=== PATIENT | female | born 1970 | race Caucasian/White ===

== ENCOUNTER 2017-01-24 09:31 | Inpatient (IN) | payer OTHER ==
[~2017-01-24] VITALS: Ht 157.5 cm; Wt 59.1 kg
[~2017-01-24 09:31] MED LIST: ATARAX,VISTARIL50 MG PO; CARBIDOPA/LEVOD1 TA1 PO; HYDROXYZINE PAM50 MG PO; LYRICA150 MG PO; NICOTINE T21 MG/24 H T; NYSTATIN 500,0001 EA PO; ROBAXIN750 MG PO; SINEMET 25-100M1 TAB PO; THERA1 TAB PO; VITAMIN B-11 TAB PO; ZOFRAN 4 MG ED2 TAB PO
[2017-01-24 10:20] VITALS: BP 134/78
[2017-01-24] MEDS ORDERED: ONE DAILY ESSE1 EACH PO (10:26)
[2017-01-24] MEDS ORDERED: ESCITALOPRAM OX20 MG PO (10:26)
[2017-01-24 11:29] LABS: BILIRUBIN NEGATIVE (NEGATIVE); BLOOD NEGATIVE (NEGATIVE); CLARITY CLEAR (CLEAR); COLOR YELLOW (YELLOW); GLUCOSE NEGATIVE (NEGATIVE); KETONE NEGATIVE (NEGATIVE); LEUKO ESTERASE NEGATIVE (NEGATIVE); NITRITE NEGATIVE (NEGATIVE); PH 5.5 (5.0-9.0); PROTEIN NEGATIVE (NEGATIVE); SPECIFIC GRAVITY >= 1.030 (1.005-1.030); UROBILINOGEN 0.2 E.U./dl (0.2-1.0)
[2017-01-24 11:35] LABS: BASO % 0.3 % (0.0-1.0); EOS % 0.3 % (1.0-4.0); HEMATOCRIT 38.4 % (37.0-47.0); HEMOGLOBIN 13.1 g/dl (12.0-16.0); LYMPH # 2.1 10*3/uL (1.3-4.4); MEAN CELL VOLUME 84.6 fl (81.0-99.0); MEAN CORPUSCULAR HGB 28.9 pg (27.0-31.0); MEAN CORPUSCULAR HGB CONC 34.1 g/dl (33.0-37.0); MEAN PLATELET VOLUME 10.1 fl (9.6-12.3); MONO # 0.7 10*3/uL (0.1-1.0); MONO % 6.7 % (3.0-9.0); NEUT # 7.3 10*3/uL (2.3-7.9); NEUT % 71.4 % (47.0-73.0); PLATELET COUNT AUTOMATED 208 10*3/uL (130-400); RED BLOOD COUNT 4.54 10*6/uL (4.10-5.10); RED CELL DISTRI WIDTH 12.9 % (0-14.5); WHITE BLOOD COUNT 10.2 10*3/uL (4.8-10.8)
[2017-01-24 11:35] LABS: BACTERIA TRACE; MUCOUS 1+; RBC 0-2 rbc/hpf (0-2)
[2017-01-24 11:36] LABS: URINE REFLEX COMMENT NO (NO)
[2017-01-24 11:37] LABS: URINE AMPHETAMINES < 1000 (1000ng/ml); URINE BARBITURATES < 200 (200ng/ml); URINE COCAINE > 300 (300ng/ml)
[2017-01-24 11:46] LABS: PROTHROMBIN TIME 10.4 SECONDS (9.0-12.4)
[2017-01-24 11:54] LABS: ALBUMIN 3.5 gm/dl (3.1-4.5); ALKALINE PHOSPHATASE 95 U/L (45-117); BILIRUBIN, TOTAL 0.3 mg/dl (0.2-1.0); BUN 13 mg/dl (7-24); CARBON DIOXIDE 29 mmol/L (21-32); CHLORIDE 104 mmol/L (98-107); EST GLOM FILT AFRICAN AMERICAN > 60 ml/min; GLUCOSE 100 mg/dL (65-99); POTASSIUM 4.4 mmol/L (3.5-5.1); SGOT/AST 26 IU/L (3-35); SGPT/ALT 56 U/L (12-78); SODIUM 142 mmol/L (136-145); TOTAL PROTEIN 7.4 gm/dL (6.4-8.2)
[2017-01-24 12:00] VITALS: BP 119/63
[2017-01-24 16:00] VITALS: BP 98/54
[2017-01-24 20:15] VITALS: BP 99/66
[2017-01-25] VITALS: BP 124/82
[2017-01-25 08:00] VITALS: BP 118/76
[2017-01-25 12:00] VITALS: BP 122/65
[2017-01-25 16:00] VITALS: BP 145/85
[2017-01-25 20:00] VITALS: BP 144/83
[2017-01-26] VITALS: BP 157/87
[2017-01-26 08:00] VITALS: BP 143/80
[2017-01-26 12:00] VITALS: BP 156/86
[2017-01-26 16:00] VITALS: BP 154/90
[2017-01-26 20:00] VITALS: BP 132/95
[2017-01-27] VITALS: BP 118/65
[2017-01-27 06:11] LABS: BASO % 0.3 % (0.0-1.0); EOS # 0.1 10*3/uL (0.0-0.4); EOS % 0.5 % (1.0-4.0); HEMATOCRIT 44.1 % (37.0-47.0); HEMOGLOBIN 14.8 g/dl (12.0-16.0); LYMPH # 3.1 10*3/uL (1.3-4.4); MEAN CELL VOLUME 85.8 fl (81.0-99.0); MEAN CORPUSCULAR HGB 28.8 pg (27.0-31.0); MEAN CORPUSCULAR HGB CONC 33.6 g/dl (33.0-37.0); MEAN PLATELET VOLUME 10.4 fl (9.6-12.3); MONO # 0.7 10*3/uL (0.1-1.0); MONO % 7.9 % (3.0-9.0); NEUT # 5.4 10*3/uL (2.3-7.9); NEUT % 58.2 % (47.0-73.0); PLATELET COUNT AUTOMATED 222 10*3/uL (130-400); RED BLOOD COUNT 5.14 10*6/uL (4.10-5.10); WHITE BLOOD COUNT 9.2 10*3/uL (4.8-10.8)
[2017-01-27 06:21] LABS: EST GLOM FILT AFRICAN AMERICAN > 60 ml/min
[2017-01-27 08:00] VITALS: BP 118/87
[2017-01-27 12:00] VITALS: BP 109/72
[2017-01-27 16:00] VITALS: BP 117/78
[2017-01-27 20:00] VITALS: BP 118/83
[2017-01-28] VITALS: BP 110/65
[2017-01-28] MEDS ORDERED: ATARAX,VISTARIL50 MG PO (09:25)
[2017-01-28] MEDS ORDERED: ZOFRAN 4 MG ED2 TAB PO (09:25)
[2017-01-28] MEDS ORDERED: CARBIDOPA/LEVOD1 TA1 PO (09:25)
== END 2017-01-28 11:05 | disposition home or self-care (01) | DRG 897 ==
LOC: 5E 09:31
PROVIDERS: Hospitalist
DX: F11.23 Opioid dependence with withdrawal (principal); F32.9 Major depressive disorder, single episode, unspecified; M15.0 Primary generalized (osteo)arthritis; M79.7 Fibromyalgia; K57.90 Diverticulosis of intestine, part unspecified, without perforation or abscess without bleeding; F14.23 Cocaine dependence with withdrawal; Z98.51 Tubal ligation status; Z84.89 Family history of other specified conditions; Z79.899 Other long term (current) drug therapy; Z88.2 Allergy status to sulfonamides